=== PATIENT | female | born 2000 ===

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

== ENCOUNTER 2022-06-16 13:43 | Inpatient (IN) ==
[2022-06-16] MEDS ORDERED: OXYTOCIN/LR 20 UNIT/1,000 ML BAG IV ONE ×2 (13:53→21:30)
[2022-06-16] MEDS ORDERED: miSOPROStoL 200 MCG TABLET RECTAL PRN (13:53)
[2022-06-16] MEDS ORDERED: TRANEXAMIC ACID 1,000 MG in SODIUM CHLORIDE 0.9% 100 ML IV PRN (13:53)
[2022-06-16] MEDS ORDERED: CARBOPROST TROMETHAMINE 250 MCG/ML AMP IM PRN (13:53)
[2022-06-16] MEDS ORDERED: METHYLERGONOVINE 0.2 MG/1 ML AMP IM PRN (13:53)
[2022-06-16] MEDS ORDERED: MEPERIDINE 50 MG/1 ML VIAL IV PRN (13:53)
[2022-06-16] MEDS ORDERED: ONDANSETRON 4 MG/2 ML VIAL IV PRN ×2 (13:53→21:06)
[2022-06-16] MEDS ORDERED: LACTATED RINGERS 250 ML IV ONE (13:53)
[2022-06-16] MEDS ORDERED: LACTATED RINGERS 500 ML IV PRN (13:53)
[2022-06-16] MEDS ORDERED: oxyCODONE/ACETAMINOPHEN 5-325 MG TABLET PO PRN (13:53)
[2022-06-16] MEDS ORDERED: LACTATED RINGERS 1,000 ML IV SCH (14:00)
[2022-06-16] MEDS ORDERED: hydrOXYzine HCL 25 MG/1 ML VIAL IM PRN (14:08)
[2022-06-16] MEDS ORDERED: ePHEDrine 50 MG/ML VIAL IV PRN (14:08)
[2022-06-16] MEDS ORDERED: diphenhydrAMINE 50 MG/1 ML VIAL IV PRN ×2 (14:08)
[2022-06-16] MEDS ORDERED: LACTATED RINGERS 1,000 ML IV ONE ×2 (14:08→21:30)
[2022-06-16] MEDS ORDERED: ONDANSETRON 4 MG/2 ML VIAL IV ONE (14:08)
[2022-06-16] MEDS ORDERED: FAMOTIDINE 20 MG/2 ML VIAL IV ONE (14:08)
[2022-06-16] MEDS ORDERED: CITRIC ACID/SODIUM CITRATE 30 ML UDCUP PO ONE (14:08)
[2022-06-16] MEDS ORDERED: NALOXONE 0.4 MG/ML VIAL IV PRN (14:08)
[2022-06-16] MEDS ORDERED: PROMETHAZINE 25 MG/1 ML VIAL IM ONE (14:08)
[2022-06-16 14:26] LABS: Basophils % 0.3 % (0.0-0.8); Eosinophils # 0.1 10*3/uL (0.0-0.87); Eosinophils % 0.8 % (0.00-10.9); Hematocrit 29.1 VOL% (35.7-47.0); Hemoglobin 10.1 GM/DL (12.0-16.0); Immature Granulocytes % 0.7 %; Immature Granulocytes Absolute 0.07 #; Lymphocytes # 1.5 10*3/uL (1.4-4.0); Lymphocytes % 14.9 % (21.3-54.2); Mean Corpuscular HGB Conc 34.7 GM/DL (32-36); Mean Corpuscular Volume 90.7 FL (87-102); Monocytes # 0.6 10*3/uL (0.11-0.8); Monocytes % 5.9 % (1.7-12.7); Neutrophils % 77.4 % (38.7-73.9); Platelet Count 173 T/CUMM (130-400); Red Blood Count 3.21 MC/CUMM (3.8-5.5); Red Cell Distribution Width 12.3 % (9.3-17.3); White Blood Count 10.4 T/CUMM (4-12)
[2022-06-16] MEDS ORDERED: fentaNYL 2 MCG/ROPIV 0.2% EPID 100 ML EPIDURAL SCH (14:30)
[2022-06-16] MEDS ORDERED: ALBUTEROL/IPRATROPIUM 3 ML NEB RESP TX PRN (14:33)
[2022-06-16 14:45] LABS: Albumin 2.3 G/DL (3.4-5.0); Bilirubin,Total 0.6 MG/DL (0.20-1.00); Calcium 8.1 MG/DL (8.5-10.1); Osmolality,Calculated 274.4 MOS/KG (273-304); Potassium 2.8 MMOL/L (3.5-5.1); Total Protein 6.4 G/DL (6.4-8.2)
[2022-06-16 15:01] LABS: Hepatitis B Surface Ag Quant < 0.10 Index; Hepatitis B Surface Ag Result Non-Reactive (NonReactive)
[2022-06-16 16:01] LABS: Bacteria,Urine Occasional /HPF (Few); Mucus,Urine Occasional /LPF (Occasional); RBC,Urine 2 /HPF (0-4); Squamous Epithelial Cell,Urine Occasional /HPF (0-10)
[2022-06-16 16:02] LABS: Protein,Urine 30 mg/dL (Negative); Urine Appearance Clear (Clear); Urine Color Yellow (Yellow); Urine Specific Gravity 1.025 (1.001-1.035); Urine pH 6.5 (4.5-8.0)
[2022-06-16 16:03] LABS: Bilirubin,Urine Small mg/dL (Negative); Blood, Urine Negative (Negative); Glucose,Urine (UA) Negative (Negative); Ketones,Urine 40 mg/dL (Negative); Nitrite,Urine Negative (Negative)
[2022-06-16] MEDS ORDERED: OXYTOCIN/LR 20 UNIT/1,000 ML BAG IV SCH (16:30)
[2022-06-16] MEDS ORDERED: MINERAL OIL 30 ML UDCUP PO ONE (16:52)
[2022-06-16 17:14] LABS: Barbiturates Screen,Urine Negative (Negative); Benzodiazepines Screen,Urine Negative (Negative); Cannabinoid Screen,Urine Negative (Negative); Opiate Screen,Urine Negative (Negative); Phencyclidine Screen,Urine Negative (Negative)
[2022-06-16 17:45] LABS: Cord Venous Blood HCO3 21.1 MMOL/L; Cord Venous Blood PCO2 50.7 MMHG; Cord Venous Blood PO2 29.9
[2022-06-16] MEDS: POTASSIUM CHLORIDE 20 MEQ TABLET PO SCH (19:30)
[2022-06-16] MEDS ORDERED: LANOLIN 50% CREAM 0.3 OZ TUBE TOP PRN (21:06)
[2022-06-16] MEDS ORDERED: BENZOCAINE 20%/MENTHOL 0.5% SPRAY 56 GM CAN TOP PRN (21:06)
[2022-06-16] MEDS ORDERED: HYDROCORTISONE 2.5% RECTAL CREAM 30 GM TUBE TOP PRN (21:06)
[2022-06-16] MEDS ORDERED: BISACODYL 10 MG SUPP RECTAL PRN (21:06)
[2022-06-16] MEDS ORDERED: WITCH HAZEL PADS 100/JAR TOP PRN (21:06)
[2022-06-16] MEDS ORDERED: IBUPROFEN 800 MG TABLET PO PRN (21:06)
[2022-06-16] MEDS ORDERED: ACETAMINOPHEN 325 MG TABLET PO PRN (21:06)
[2022-06-16] MEDS: DOCUSATE SODIUM 100 MG CAPSULE PO SCH (21:20)
[2022-06-16] MEDS ORDERED: MEASLES/MUMPS/RUBELLA VACCINE 0.5 ML VIAL SUBCUT ONE (21:30)
[2022-06-16] MEDS ORDERED: DIPH/TET/ACEL PERT BOOSTER VACCINE 0.5 ML VIAL IM ONE (21:30)
[2022-06-16] MEDS ORDERED: RHO(D) IMMUNE GLOBULIN 300 MCG SYRINGE IM ONE (21:30)
[2022-06-17] MEDS: POTASSIUM CHLORIDE 20 MEQ TABLET PO SCH ×2 (00:05→04:00)
[2022-06-17 08:08] LABS: Basophils % 0.3 % (0.0-0.8); Eosinophils # 0.2 10*3/uL (0.0-0.87); Eosinophils % 1.7 % (0.00-10.9); Hematocrit 25.8 VOL% (35.7-47.0); Hemoglobin 8.8 GM/DL (12.0-16.0); Immature Granulocytes % 0.5 %; Immature Granulocytes Absolute 0.05 #; Lymphocytes # 1.5 10*3/uL (1.4-4.0); Lymphocytes % 15.6 % (21.3-54.2); Mean Corpuscular HGB Conc 34.1 GM/DL (32-36); Mean Corpuscular Volume 89.6 FL (87-102); Mean Platelet Volume 11.6 FL (9.6-12.0); Monocytes # 0.7 10*3/uL (0.11-0.8); Monocytes % 7.3 % (1.7-12.7); Neutrophils % 74.6 % (38.7-73.9); Platelet Count 161 T/CUMM (130-400); Red Blood Count 2.88 MC/CUMM (3.8-5.5); Red Cell Distribution Width 12.2 % (9.3-17.3); White Blood Count 9.3 T/CUMM (4-12)
[2022-06-17] MEDS: FERROUS SULFATE 325 MG TABLET PO SCH (09:39)
[2022-06-17] MEDS: DOCUSATE SODIUM 100 MG CAPSULE PO SCH ×2 (09:39→20:46)
[2022-06-17] MEDS: MULTIVITAMIN (PRENATAL) TABLET PO SCH (09:41)
[2022-06-17 09:46] LABS: Rubella Antibody IgG Result Reactive (NonReactive)
[2022-06-17 17:42] LABS: Basophils % 0.3 % (0.0-0.8); Eosinophils # 0.3 10*3/uL (0.0-0.87); Eosinophils % 2.7 % (0.00-10.9); Hematocrit 24.8 VOL% (35.7-47.0); Hemoglobin 8.4 GM/DL (12.0-16.0); Immature Granulocytes % 1.1 %; Lymphocytes # 2.1 10*3/uL (1.4-4.0); Lymphocytes % 21.6 % (21.3-54.2); Mean Corpuscular HGB Conc 33.9 GM/DL (32-36); Mean Corpuscular Volume 90.8 FL (87-102); Mean Platelet Volume 11.6 FL (9.6-12.0); Monocytes # 0.6 10*3/uL (0.11-0.8); Monocytes % 6.8 % (1.7-12.7); Neutrophils % 67.5 % (38.7-73.9); Platelet Count 149 T/CUMM (130-400); Red Blood Count 2.73 MC/CUMM (3.8-5.5); Red Cell Distribution Width 12.6 % (9.3-17.3); White Blood Count 9.5 T/CUMM (4-12)
[2022-06-18 07:13] VITALS: BP 103/59
[2022-06-18] MEDS: DOCUSATE SODIUM 100 MG CAPSULE PO SCH (08:09)
[2022-06-18] MEDS: FERROUS SULFATE 325 MG TABLET PO SCH (08:10)
[2022-06-18] MEDS: MULTIVITAMIN (PRENATAL) TABLET PO SCH (08:10)
== END 2022-06-18 16:20 | disposition home or self-care (01) | DRG 805 ==
LOC: N.LDOUT 13:43 → N.LD 13:44 → N.OB 19:50
PROVIDERS: ADMIT Obstetrics & Gynecology; ATTEND Obstetrics & Gynecology